=== PATIENT | female | born 1995 | race African-American/Black ===

== ENCOUNTER 2019-01-05 22:59 | Emergency (ER) | payer BC, OTHER ==
[~2019-01-05] VITALS: Ht 172.7 cm; Wt 84.0 kg
[2019-01-06 00:38] LABS: CLARITY URINE CLEAR (CLEAR); COLOR URINE YELLOW (YELLOW); KETONES URINE NEGATIVE (NEGATIVE); LEUKOCYTE ESTERASE URINE NEGATIVE (NEGATIVE); NITRITE URINE NEGATIVE (NEGATIVE); OCCULT BLOOD URINE 2+ (NEGATIVE); PROTEIN URINE NEGATIVE (NEGATIVE); SPECIFIC GRAVITY URINE 1.032 (1.005-1.030); UROBILINOGEN URINE 0.2 E.U./dL (0.2-1.0)
[2019-01-06] MEDS ORDERED: KETOROLAC 30MG/ML VIAL IV ONE (00:45)
[2019-01-06 01:41] VITALS: BP 130/76
[2019-01-06] MEDS ORDERED: ACETAMINOPHEN 325MG TABLET PO ONE (03:00)
[2019-01-06] MEDS ORDERED: KETOROLAC 60MG/2ML VIAL IM ONE (04:00)
== END 2019-01-06 05:02 | disposition home or self-care (01) ==
LOC: ER 22:59
DX: N83.201 Unspecified ovarian cyst, right side (principal)
CPT/HCPCS: 76830; 76856; 81003; 81025; 96372; 96374; 99284; J1885; Z7610